=== PATIENT | female | born 1990 | race Caucasian/White ===

== ENCOUNTER 2022-07-23 14:30 | Outpatient (RCR) | payer OTHER, MEDICAID, SELFPAY ==
--- NOTE | 2022-01-24 12:00 | PT.OIE ---
Current Diagnoses Cystocele, unspecified (01/24/22) Encounter for routine follow-up (01/24/22) Visit Care Team Role Provider Type Marti Martel MD Primary Care Provider Non-Staff Specialty: RETORT FIRER Address: [facility] RETORT FIRER, [address], [facility] [address], [place], [address] Email: Ruth Garza DO Family Provider Non-Staff Specialty: RETORT FIRER Address: [facility] [employer]ORT [employer]ER, [address], [address], [place], [address] Email: Attending Provider Referring Provider Specialty: Address: Phone: Fax: Email: Physical Therapy Initial Evaluation PT-OP-A Visit Information Start: 01/16/22 12:31 Freq: Status: Active Protocol: Document 01/24/22 11:11 AMB (Rec: 01/24/22 12:59 AMB [id number]) Out-Patient Physical Therapy Visit Information Visit Information Visit Type Initial Evaluation Visit Start Time 11:10 Visit Stop Time 12:00 Total Visit Minutes 50 Visit Number 1 PT-OP-B Current Condition Start: 01/16/22 12:31 Freq: Status: Active Protocol: Document 01/24/22 11:11 AMB (Rec: 01/24/22 12:59 AMB [id number]) Current Condition History of Current Condition Onset Date 10/10 Current Complaints Pelvic heaviness History of Current Condition Sex was painful for a couple weeks after marriage, had to use a dilator. But was able have intercourse, but since the of her daughter she feels pelvic heaviness. Has been checked by 3 different doctors all of whom have said she does not have prolapse. She feels heaviness constantly , but worst with activity and at the end of the day. Also urinary urgency, feels like she needs to use the bathroom after an hour, but then voids only a small volume. Denies fecal incontinence/ constipation. GrII tear with , per pt report short period of time with pushing. Menstruation has returned and she did feel that a tampon was mildly helpful. Treatment Goals Patient/Caregiver Goals Be able to walk around without pelvic heaviness Prior Functional Status Baseline Function- ADL's Independent Baseline Function- Mobility Independent Current Functional Impairments (Reported) Functional Limitations- ADL's [place], lifting her child , standing at the end of the day without pain Personal Factors Other Personal Factors That May Effect Anxiety Therapy/Recovery PT-OP-C Subjective Start: 01/16/22 12:31 Freq: Status: Active Protocol: Document 01/24/22 11:15 AMB (Rec: 01/28/22 11:23 AMB [id number]) Patient Questionnaires Pelvic Pain and Urgency/Frequency Patient Symptom Scale Pelvic Pain Score 12 PT-OP-I Pelvic Floor Start: 01/16/22 12:31 Freq: Status: Active Protocol: Document 01/24/22 11:11 AMB (Rec: 01/24/22 12:59 AMB [id number]) Pelvic Floor Assessment Urine Pelvic Floor Surgery No Leakage Cause Cough,Sneeze Nocturia 1 Bowel [place] Stool Chart Comments 3-4 bristol stool scale Pelvic Clock Pelvic Clock Other Tenderness at R levator ani, none on left. Burning pain with palpation at scar at 6 oclock. Prolapse Prolapse Comments Could not visualize prolapse in hooklying with valsalva or in standing Perineal Descent Resting Absent Bearing Present Contraction Ability Manual Muscle Testing Left 2 Manual Muscle Testing Right 2 Manual Muscle Testing Anterior 2 Manual Muscle Testing Posterior 3 Muscle Endurance (Seconds) 4 Number of Quick Contractions In 10 4 Seconds PT-OP-T Assessment and Plan Start: 01/16/22 12:31 Freq: Status: Active Protocol: Document 01/24/22 11:15 AMB (Rec: 01/28/22 11:37 AMB [id number]) Physical Therapy Assessment Rehab Potential Rehabilitation Potential Good Evaluation Complexity Number of Personal Factors/Comorbidities 1-2 Number of Body Systems Impaired 3 Clinical Presentation at Evaluation Stable Impairments Impairments Activity Tolerance,Pain, Strength Goals Two Impairment Pelvic floor weakness Short Term Goal (STG) Shilpi will contract her pelvic floor muscles for 10 seconds in standing without compensation. STG Duration 4 weeks One Impairment Pelvic pain Short Term Goal (STG) Shilpi will engage in the sexual intercourse of her choice without pelvic pain. STG Duration 4 weeks Care Home Goal (LTG) Shilpi will lift her daughter from the floor without pelvic heaviness. LTG Duration 8 weeks Assessment Summary Assessment Shilpi attends physical therapy with pelvic pain worst at the end of her day and with activity after the of her daughter 4 months ago. She presented with a history of painful intercourse and did have burning pain over her scar and along the right side of her levator ani. While she was able to contract her pelvic floor for a maximum of 4 seconds, she would absolutely benefit from pelvic floor strengthening, but with respect to her pelvic pain history. No organ prolapse was visible in either hooklying with valsalva or in standing, but did discuss her reduced pelvic floor strength and pain history and how this is likely causing her pain. Physical Therapy Plan Frequency and Duration Frequency of Treatment 1x/Week Duration of Treatment 8 weeks Plan of Care Start Date 01/24/22 Plan of Care End Date 03/21/22 Therapeutic Interventions Therapeutic Interventions Home Exercise Program,Manual Therapy,Neuromuscular Re- education,Self-Care/Home Management,Therapeutic Activities,Therapeutic Exercises Modalities Biofeedback,Cold Pack/Ice Massage,Electric Stimulation Next Visit Focus/Plan Next Note Type Treatment Note Next Visit Plan Recheck quick flicks, long holds, instruct in scar massage
--- NOTE | 2022-01-24 12:00 | PT.OPPOC ---
Physical, Occupational & Speech Therapy At [facility] Current Diagnoses Cystocele, unspecified (01/24/22) Encounter for routine follow-up (01/24/22) Visit Care Team Role Provider Type Marti Martel MD Primary Care Provider Non-Staff Specialty: MOP WORKER Address: [facility] MOP WORKER, [address] [place] [address], [id number] Email: Ruth Garza DO Family Provider Non-Staff Specialty: MOP WORKER Address: [facility] MOP WORKER, [address] [place] [address], [id number] Email: Attending Provider Referring Provider Specialty: Address: Phone: Fax: Email: Plan Of Care PT-OP-T Assessment and Plan Start: 01/16/22 12:31 Freq: Status: Active Protocol: Document 01/24/22 11:15 AMB (Rec: 01/28/22 11:37 [facility] [id number]) Physical Therapy Assessment Rehab Potential Rehabilitation Potential Good Evaluation Complexity Number of Personal Factors/Comorbidities 1-2 Number of Body Systems Impaired 3 Clinical Presentation at Evaluation Stable Impairments Impairments Activity Tolerance,Pain, Strength Goals Two Impairment Pelvic floor weakness Short Term Goal (STG) Shilpi will contract her pelvic floor muscles for 10 seconds in standing without compensation. STG Duration 4 weeks One Impairment Pelvic pain Short Term Goal (STG) Shilpi will engage in the sexual intercourse of her choice without pelvic pain. STG Duration 4 weeks Prison Goal (LTG) Shilpi will lift her daughter from the floor without pelvic heaviness. LTG Duration 8 weeks Assessment Summary Assessment Shilpi attends physical therapy with pelvic pain worst at the end of her day and with activity after the of her daughter 4 months ago. She presented with a history of painful intercourse and did have burning pain over her scar and along the right side of her levator ani. While she was able to contract her pelvic floor for a maximum of 4 seconds, she would absolutely benefit from pelvic floor strengthening, but with respect to her pelvic pain history. No organ prolapse was visible in either hooklying with valsalva or in standing, but did discuss her reduced pelvic floor strength and pain history and how this is likely causing her pain. Physical Therapy Plan Frequency and Duration Frequency of Treatment 1x/Week Duration of Treatment 8 weeks Plan of Care Start Date 01/24/22 Plan of Care End Date 03/21/22 Therapeutic Interventions Therapeutic Interventions Home Exercise Program,Manual Therapy,Neuromuscular Re- education,Self-Care/Home Management,Therapeutic Activities,Therapeutic Exercises Modalities Biofeedback,Cold Pack/Ice Massage,Electric Stimulation Next Visit Focus/Plan Next Note Type Treatment Note Next Visit Plan Recheck quick flicks, long holds, instruct in scar massage Plan of Care Dates Plan of Care Start Date 01/24/22 Plan of Care End Date 03/21/22 Electronically Signed by: Hortensia Jolly, PT 01/28/22 [id number] Please Sign and Return: I have reviewed this Plan of Care and certify that the skilled therapy services above are required to meet the patient?s needs. Physician Signature Date Printed Name and Credentials Clinical Instructor Signature Printed Name and Credentials
--- NOTE | 2022-01-31 16:21 | PT.OTN ---
Current Diagnoses Cystocele, unspecified (01/31/22) Encounter for routine follow-up (01/31/22) Physical Therapy Treatment Note PT-OP-A Visit Information Start: 01/16/22 12:31 Freq: Status: Active Protocol: Document 01/31/22 14:30 AMB (Rec: 01/31/22 15:32 AMB [id number]) Out-Patient Physical Therapy Visit Information Visit Information Visit Type Treatment Note Visit Start Time 14:30 Visit Stop Time 15:15 Total Visit Minutes 45 Visit Number 2 PT-OP-B Current Condition Start: 01/16/22 12:31 Freq: Status: Active Protocol: Document 01/24/22 11:11 AMB (Rec: 01/24/22 12:59 AMB [id number]) Current Condition History of Current Condition Onset Date 10/10 Current Complaints Pelvic heaviness History of Current Condition Sex was painful for a couple weeks after marriage, had to use a dilator. But was able have intercourse, but since the of her daughter she feels pelvic heaviness. Has been checked by 3 different doctors all of whom have said she does not have prolapse. She feels heaviness constantly , but worst with activity and at the end of the day. Also urinary urgency, feels like she needs to use the bathroom after an hour, but then voids only a small volume. Denies fecal incontinence/ constipation. GrII tear with , per pt report short period of time with pushing. Menstruation has returned and she did feel that a tampon was mildly helpful. Treatment Goals Patient/Caregiver Goals Be able to walk around without pelvic heaviness Prior Functional Status Baseline Function- ADL's Independent Baseline Function- Mobility Independent Current Functional Impairments (Reported) Functional Limitations- ADL's [place], lifting her child , standing at the end of the day without pain Personal Factors Other Personal Factors That May Effect Anxiety Therapy/Recovery PT-OP-C Subjective Start: 01/16/22 12:31 Freq: Status: Active Protocol: Document 01/31/22 14:30 AMB (Rec: 01/31/22 15:32 AMB [id number]) OP-PT Subjective Patient Comments Patient Comments Pt thinks she is getting better, just a little. Did go on a walk and shopping and did have increased sx with that. PT-OP-I Pelvic Floor Start: 01/16/22 12:31 Freq: Status: Active Protocol: Document 01/24/22 11:11 AMB (Rec: 01/24/22 12:59 AMB [id number]) Pelvic Floor Assessment Urine Pelvic Floor Surgery No Leakage Cause Cough,Sneeze Nocturia 1 Bowel [place] Stool Chart Comments 3-4 bristol stool scale Pelvic Clock Pelvic Clock Other Tenderness at R levator ani, none on left. Burning pain with palpation at scar at 6 oclock. Prolapse Prolapse Comments Could not visualize prolapse in hooklying with valsalva or in standing Perineal Descent Resting Absent Bearing Present Contraction Ability Manual Muscle Testing Left 2 Manual Muscle Testing Right 2 Manual Muscle Testing Anterior 2 Manual Muscle Testing Posterior 3 Muscle Endurance (Seconds) 4 Number of Quick Contractions In 10 4 Seconds PT-OP-Q Treatments Start: 01/16/22 12:31 Freq: Status: Active Protocol: Document 01/31/22 14:30 AMB (Rec: 01/31/22 16:21 AMB [id number]) Neuro Re-Education Treatment Other Activities sEMG Comments quick flicks, long holds, see assessment section PT-OP-T Assessment and Plan Start: 01/16/22 12:31 Freq: Status: Active Protocol: Document 01/31/22 14:30 AMB (Rec: 01/31/22 15:32 AMB [id number]) Physical Therapy Assessment Goals Two Impairment Pelvic floor weakness Short Term Goal (STG) Shilpi will contract her pelvic floor muscles for 10 seconds in standing without compensation. STG Duration 4 weeks One Impairment Pelvic pain Short Term Goal (STG) Shilpi will engage in the sexual intercourse of her choice without pelvic pain. STG Duration 4 weeks Half-Way Goal (LTG) Shilpi will lift her daughter from the floor without pelvic heaviness. LTG Duration 8 weeks Assessment Summary Assessment Long holds 12, avg 4. quick flicks 12.7. Shilpi continues to have a lot of questions, did discuss activity prescription. Encouraged her that shopping/going for walks is good for her, but if she is symptomatic try to limit to one big activity a day. Would also advise against running/ jumping/lifting heavy at this point. Does fatigue quickly after about 4-5 seconds. Physical Therapy Plan Next Visit Focus/Plan Next Note Type Treatment Note Next Visit Plan Recheck quick flicks, long holds, instruct in scar massage
--- NOTE | 2022-02-07 14:53 | PT.OTN ---
Current Diagnoses Cystocele, unspecified (02/07/22) Encounter for routine follow-up (02/07/22) Physical Therapy Treatment Note PT-OP-A Visit Information Start: 01/16/22 12:31 Freq: Status: Active Protocol: Document 02/07/22 14:34 AMB (Rec: 02/07/22 15:35 AMB [id number]) Out-Patient Physical Therapy Visit Information Visit Information Visit Type Treatment Note Visit Start Time 14:30 Visit Stop Time 15:15 Total Visit Minutes 45 Visit Number 3 PT-OP-B Current Condition Start: 01/16/22 12:31 Freq: Status: Active Protocol: Document 01/24/22 11:11 AMB (Rec: 01/24/22 12:59 AMB [id number]) Current Condition History of Current Condition Onset Date 10/10 Current Complaints Pelvic heaviness History of Current Condition Sex was painful for a couple weeks after marriage, had to use a dilator. But was able have intercourse, but since the of her daughter she feels pelvic heaviness. Has been checked by 3 different doctors all of whom have said she does not have prolapse. She feels heaviness constantly , but worst with activity and at the end of the day. Also urinary urgency, feels like she needs to use the bathroom after an hour, but then voids only a small volume. Denies fecal incontinence/ constipation. GrII tear with , per pt report short period of time with pushing. Menstruation has returned and she did feel that a tampon was mildly helpful. Treatment Goals Patient/Caregiver Goals Be able to walk around without pelvic heaviness Prior Functional Status Baseline Function- ADL's Independent Baseline Function- Mobility Independent Current Functional Impairments (Reported) Functional Limitations- ADL's [place], lifting her child , standing at the end of the day without pain Personal Factors Other Personal Factors That May Effect Anxiety Therapy/Recovery PT-OP-C Subjective Start: 01/16/22 12:31 Freq: Status: Active Protocol: Document 02/07/22 14:30 AMB (Rec: 02/09/22 14:53 AMB [id number]) OP-PT Subjective Patient Comments Patient Comments Pt continues to think there is mild improvement in sx. PT-OP-I Pelvic Floor Start: 01/16/22 12:31 Freq: Status: Active Protocol: Document 01/24/22 11:11 AMB (Rec: 01/24/22 12:59 AMB [id number]) Pelvic Floor Assessment Urine Pelvic Floor Surgery No Leakage Cause Cough,Sneeze Nocturia 1 Bowel [place] Stool Chart Comments 3-4 bristol stool scale Pelvic Clock Pelvic Clock Other Tenderness at R levator ani, none on left. Burning pain with palpation at scar at 6 oclock. Prolapse Prolapse Comments Could not visualize prolapse in hooklying with valsalva or in standing Perineal Descent Resting Absent Bearing Present Contraction Ability Manual Muscle Testing Left 2 Manual Muscle Testing Right 2 Manual Muscle Testing Anterior 2 Manual Muscle Testing Posterior 3 Muscle Endurance (Seconds) 4 Number of Quick Contractions In 10 4 Seconds PT-OP-Q Treatments Start: 01/16/22 12:31 Freq: Status: Active Protocol: Document 02/07/22 14:30 AMB (Rec: 02/09/22 14:53 AMB [id number]) Therapeutic Exercises Supine Exercises PF contract Comments with legs elevated Sitting Exercises PF contract Comments with sit to stand roll out Resistance #2 t band Reps/Minutes 10 roll in Resistance ball Reps/Minutes 2x10 Comments cues to contract first, breathe PT-OP-T Assessment and Plan Start: 01/16/22 12:31 Freq: Status: Active Protocol: Document 02/07/22 14:30 AMB (Rec: 02/09/22 14:53 AMB [id number]) Physical Therapy Assessment Goals Two Impairment Pelvic floor weakness Short Term Goal (STG) Shilpi will contract her pelvic floor muscles for 10 seconds in standing without compensation. STG Duration 4 weeks One Impairment Pelvic pain Short Term Goal (STG) Shilpi will engage in the sexual intercourse of her choice without pelvic pain. STG Duration 4 weeks Joggle Press Operator Goal (LTG) Shilpi will lift her daughter from the floor without pelvic heaviness. LTG Duration 8 weeks Assessment Summary Assessment Shilpi did well with roll outs and roll ins, continued to encourage in pelvic/leg elevation for symptom relief. Physical Therapy Plan Next Visit Focus/Plan Next Note Type Treatment Note Next Visit Plan Recheck quick flicks, long holds, follow up on dilator
--- NOTE | 2022-02-14 15:59 | PT.OTN ---
Current Diagnoses Cystocele, unspecified (02/14/22) Encounter for routine follow-up (02/14/22) Physical Therapy Treatment Note PT-OP-A Visit Information Start: 01/16/22 12:31 Freq: Status: Active Protocol: Document 02/14/22 14:32 AMB (Rec: 02/14/22 15:59 AMB [id number]) Out-Patient Physical Therapy Visit Information Visit Information Visit Type Treatment Note Visit Start Time 14:30 Visit Stop Time 15:15 Total Visit Minutes 45 Visit Number 4 PT-OP-B Current Condition Start: 01/16/22 12:31 Freq: Status: Active Protocol: Document 01/24/22 11:11 AMB (Rec: 01/24/22 12:59 AMB [id number]) Current Condition History of Current Condition Onset Date 10/10 Current Complaints Pelvic heaviness History of Current Condition Sex was painful for a couple weeks after marriage, had to use a dilator. But was able have intercourse, but since the of her daughter she feels pelvic heaviness. Has been checked by 3 different doctors all of whom have said she does not have prolapse. She feels heaviness constantly , but worst with activity and at the end of the day. Also urinary urgency, feels like she needs to use the bathroom after an hour, but then voids only a small volume. Denies fecal incontinence/ constipation. GrII tear with , per pt report short period of time with pushing. Menstruation has returned and she did feel that a tampon was mildly helpful. Treatment Goals Patient/Caregiver Goals Be able to walk around without pelvic heaviness Prior Functional Status Baseline Function- ADL's Independent Baseline Function- Mobility Independent Current Functional Impairments (Reported) Functional Limitations- ADL's [place], lifting her child , standing at the end of the day without pain Personal Factors Other Personal Factors That May Effect Anxiety Therapy/Recovery PT-OP-C Subjective Start: 01/16/22 12:31 Freq: Status: Active Protocol: Document 02/14/22 14:32 AMB (Rec: 02/14/22 15:59 AMB [id number]) OP-PT Subjective Patient Comments Patient Comments Shilpi had a good day on Saturday, and so did more and the next day there was more pressure. 2/10 currently; 6/ 10 at worst on Saturday. PT-OP-I Pelvic Floor Start: 01/16/22 12:31 Freq: Status: Active Protocol: Document 01/24/22 11:11 AMB (Rec: 01/24/22 12:59 AMB [id number]) Pelvic Floor Assessment Urine Pelvic Floor Surgery No Leakage Cause Cough,Sneeze Nocturia 1 Bowel [place] Stool Chart Comments 3-4 bristol stool scale Pelvic Clock Pelvic Clock Other Tenderness at R levator ani, none on left. Burning pain with palpation at scar at 6 oclock. Prolapse Prolapse Comments Could not visualize prolapse in hooklying with valsalva or in standing Perineal Descent Resting Absent Bearing Present Contraction Ability Manual Muscle Testing Left 2 Manual Muscle Testing Right 2 Manual Muscle Testing Anterior 2 Manual Muscle Testing Posterior 3 Muscle Endurance (Seconds) 4 Number of Quick Contractions In 10 4 Seconds PT-OP-Q Treatments Start: 01/16/22 12:31 Freq: Status: Active Protocol: Document 02/14/22 14:32 AMB (Rec: 02/14/22 15:59 AMB [id number]) Therapeutic Exercises Supine Exercises pelvic tilts Comments wiht pelvic floor, breath double knee to chest Reps/Minutes 10x5 pelvic tilts, pelvic circles Reps/Minutes 10 december Supine Exercise Name on therapy ball, with pf contract Reps/Minutes 10 Comments cued breath Sitting Exercises roll out Resistance #2 t band Reps/Minutes 10 roll in Resistance ball Reps/Minutes 2x10 Comments cues to contract first, breathe Other Exercises 1 Other Exercise Name quadruped LE extension with long hold Reps/Minutes x10 cristin pose Reps/Minutes 30x4 PT-OP-T Assessment and Plan Start: 01/16/22 12:31 Freq: Status: Active Protocol: Document 02/14/22 14:32 AMB (Rec: 02/14/22 15:59 AMB [id number]) Physical Therapy Assessment Goals Two Impairment Pelvic floor weakness Short Term Goal (STG) Shilpi will contract her pelvic floor muscles for 10 seconds in standing without compensation. STG Duration 4 weeks One Impairment Pelvic pain Short Term Goal (STG) Shilpi will engage in the sexual intercourse of her choice without pelvic pain. STG Duration 4 weeks Assisted Goal (LTG) Shilpi will lift her daughter from the floor without pelvic heaviness. LTG Duration 8 weeks Assessment Summary Assessment Shilpi continues to have questions, but was able to tolerate all exercises without pressure. Encouraged in keeping activity levels similar throughout the week to avoid increased pressure, but also slowly increase activity , consider aquatics. Physical Therapy Plan Next Visit Focus/Plan Next Note Type Treatment Note Next Visit Plan Recheck quick flicks, long holds, follow up on dilator
--- NOTE | 2022-02-21 16:00 | PT.OTN ---
Current Diagnoses Cystocele, unspecified (02/21/22) Encounter for routine follow-up (02/21/22) Physical Therapy Treatment Note PT-OP-A Visit Information Start: 01/16/22 12:31 Freq: Status: Active Protocol: Document 02/21/22 14:30 AMB (Rec: 02/21/22 15:55 AMB [id number]) Out-Patient Physical Therapy Visit Information Visit Information Visit Type Treatment Note Visit Start Time 14:30 Visit Stop Time 15:15 Total Visit Minutes 45 Visit Number 5 PT-OP-B Current Condition Start: 01/16/22 12:31 Freq: Status: Active Protocol: Document 01/24/22 11:11 AMB (Rec: 01/24/22 12:59 AMB [id number]) Current Condition History of Current Condition Onset Date 10/10 Current Complaints Pelvic heaviness History of Current Condition Sex was painful for a couple weeks after marriage, had to use a dilator. But was able have intercourse, but since the of her daughter she feels pelvic heaviness. Has been checked by 3 different doctors all of whom have said she does not have prolapse. She feels heaviness constantly , but worst with activity and at the end of the day. Also urinary urgency, feels like she needs to use the bathroom after an hour, but then voids only a small volume. Denies fecal incontinence/ constipation. GrII tear with , per pt report short period of time with pushing. Menstruation has returned and she did feel that a tampon was mildly helpful. Treatment Goals Patient/Caregiver Goals Be able to walk around without pelvic heaviness Prior Functional Status Baseline Function- ADL's Independent Baseline Function- Mobility Independent Current Functional Impairments (Reported) Functional Limitations- ADL's [place], lifting her child , standing at the end of the day without pain Personal Factors Other Personal Factors That May Effect Anxiety Therapy/Recovery PT-OP-C Subjective Start: 01/16/22 12:31 Freq: Status: Active Protocol: Document 02/21/22 14:30 AMB (Rec: 02/21/22 15:55 AMB [id number]) OP-PT Subjective Patient Comments Patient Comments Shilpi van thinks sx are slowly getting better, but she continues to be constantly aware of the symptoms PT-OP-I Pelvic Floor Start: 01/16/22 12:31 Freq: Status: Active Protocol: Document 01/24/22 11:11 AMB (Rec: 01/24/22 12:59 AMB [id number]) Pelvic Floor Assessment Urine Pelvic Floor Surgery No Leakage Cause Cough,Sneeze Nocturia 1 Bowel [place] Stool Chart Comments 3-4 bristol stool scale Pelvic Clock Pelvic Clock Other Tenderness at R levator ani, none on left. Burning pain with palpation at scar at 6 oclock. Prolapse Prolapse Comments Could not visualize prolapse in hooklying with valsalva or in standing Perineal Descent Resting Absent Bearing Present Contraction Ability Manual Muscle Testing Left 2 Manual Muscle Testing Right 2 Manual Muscle Testing Anterior 2 Manual Muscle Testing Posterior 3 Muscle Endurance (Seconds) 4 Number of Quick Contractions In 10 4 Seconds PT-OP-Q Treatments Start: 01/16/22 12:31 Freq: Status: Active Protocol: Document 02/21/22 14:30 AMB (Rec: 02/21/22 15:55 AMB [id number]) Neuro Re-Education Treatment Other Activities sEMG Comments quick flicks, long holds, see assessment section PT-OP-T Assessment and Plan Start: 01/16/22 12:31 Freq: Status: Active Protocol: Document 02/21/22 14:41 AMB (Rec: 02/21/22 15:29 AMB [id number]) Physical Therapy Assessment Goals Two Impairment Pelvic floor weakness Short Term Goal (STG) Shilpi will contract her pelvic floor muscles for 10 seconds in standing without compensation. STG Duration 4 weeks One Impairment Pelvic pain Short Term Goal (STG) Shilpi will engage in the sexual intercourse of her choice without pelvic pain. STG Duration 4 weeks Retirement Goal (LTG) Shilpi will lift her daughter from the floor without pelvic heaviness. LTG Duration 8 weeks Assessment Summary Assessment Long holds 17, avg 6. quick flicks 17. Education provided that numbers are improving, which given 3 weeks since last checked is very reassuring. Encouraged pt that since she is still only 4 months post some feeling of heaviness and pressure would be very common (but not normal ), and that if she is continuing to feel sx in another 5 months, would recommend return to [place], but given improvement so far not thinking that will be needed. Physical Therapy Plan Next Visit Focus/Plan Next Note Type Treatment Note Next Visit Plan Recheck quick flicks, long holds, follow up on dilator
--- NOTE | 2022-02-28 16:00 | PT.OTN ---
Current Diagnoses Cystocele, unspecified (02/28/22) Encounter for routine follow-up (02/28/22) Physical Therapy Treatment Note PT-OP-A Visit Information Start: 01/16/22 12:31 Freq: Status: Active Protocol: Document 02/28/22 14:33 AMB (Rec: 02/28/22 15:33 AMB [id number]) Out-Patient Physical Therapy Visit Information Visit Information Visit Type Treatment Note Visit Start Time 14:30 Visit Stop Time 15:15 Total Visit Minutes 45 Visit Number 6 PT-OP-B Current Condition Start: 01/16/22 12:31 Freq: Status: Active Protocol: Document 01/24/22 11:11 AMB (Rec: 01/24/22 12:59 AMB [id number]) Current Condition History of Current Condition Onset Date 10/10 Current Complaints Pelvic heaviness History of Current Condition Sex was painful for a couple weeks after marriage, had to use a dilator. But was able have intercourse, but since the of her daughter she feels pelvic heaviness. Has been checked by 3 different doctors all of whom have said she does not have prolapse. She feels heaviness constantly , but worst with activity and at the end of the day. Also urinary urgency, feels like she needs to use the bathroom after an hour, but then voids only a small volume. Denies fecal incontinence/ constipation. GrII tear with , per pt report short period of time with pushing. Menstruation has returned and she did feel that a tampon was mildly helpful. Treatment Goals Patient/Caregiver Goals Be able to walk around without pelvic heaviness Prior Functional Status Baseline Function- ADL's Independent Baseline Function- Mobility Independent Current Functional Impairments (Reported) Functional Limitations- ADL's [place], lifting her child , standing at the end of the day without pain Personal Factors Other Personal Factors That May Effect Anxiety Therapy/Recovery PT-OP-C Subjective Start: 01/16/22 12:31 Freq: Status: Active Protocol: Document 02/28/22 14:33 AMB (Rec: 02/28/22 15:33 AMB [id number]) OP-PT Subjective Patient Comments Patient Comments Shilpi continues to be worried she has prolpase, as she does feel relief when she inserts a finger vaginally and pushes against ant wall of vagina. PT-OP-I Pelvic Floor Start: 01/16/22 12:31 Freq: Status: Active Protocol: Document 01/24/22 11:11 AMB (Rec: 01/24/22 12:59 AMB [id number]) Pelvic Floor Assessment Urine Pelvic Floor Surgery No Leakage Cause Cough,Sneeze Nocturia 1 Bowel [place] Stool Chart Comments 3-4 bristol stool scale Pelvic Clock Pelvic Clock Other Tenderness at R levator ani, none on left. Burning pain with palpation at scar at 6 oclock. Prolapse Prolapse Comments Could not visualize prolapse in hooklying with valsalva or in standing Perineal Descent Resting Absent Bearing Present Contraction Ability Manual Muscle Testing Left 2 Manual Muscle Testing Right 2 Manual Muscle Testing Anterior 2 Manual Muscle Testing Posterior 3 Muscle Endurance (Seconds) 4 Number of Quick Contractions In 10 4 Seconds PT-OP-Q Treatments Start: 01/16/22 12:31 Freq: Status: Active Protocol: Document 02/28/22 14:30 AMB (Rec: 03/04/22 10:21 AMB [id number]) Therapeutic Exercises Supine Exercises pelvic tilts Comments wiht pelvic floor, breath double knee to chest Reps/Minutes 10x5 Sitting Exercises sit to stand Reps/Minutes 2x10 Comments cued PF control, breath PF contract Comments with sit to stand roll out Resistance #2 t band Reps/Minutes 10 PT-OP-T Assessment and Plan Start: 01/16/22 12:31 Freq: Status: Active Protocol: Document 02/28/22 14:33 AMB (Rec: 02/28/22 15:33 AMB [id number]) Physical Therapy Assessment Assessment Summary Assessment Shilpi did well with jojo pelvic floor while moving from sit to stand, but does tend to have more sx the next day after activity, can prescribe more intense strengthening next week if she tolerates sit to stands well. Physical Therapy Plan Next Visit Focus/Plan Next Note Type Treatment Note Next Visit Plan progress into standing
--- NOTE | 2022-03-06 15:45 | PT.OTN ---
Current Diagnoses Cystocele, unspecified (03/06/22) Encounter for routine follow-up (03/06/22) Physical Therapy Treatment Note PT-OP-A Visit Information Start: 01/16/22 12:31 Freq: Status: Active Protocol: Document 03/06/22 14:02 AMB (Rec: 03/06/22 14:33 AMB [id number]) Out-Patient Physical Therapy Visit Information Visit Information Visit Type Treatment Note Visit Start Time 14:00 Visit Stop Time 14:30 Total Visit Minutes 30 Visit Number 7 PT-OP-B Current Condition Start: 01/16/22 12:31 Freq: Status: Active Protocol: Document 01/24/22 11:11 AMB (Rec: 01/24/22 12:59 AMB [id number]) Current Condition History of Current Condition Onset Date 10/10 Current Complaints Pelvic heaviness History of Current Condition Sex was painful for a couple weeks after marriage, had to use a dilator. But was able have intercourse, but since the of her daughter she feels pelvic heaviness. Has been checked by 3 different doctors all of whom have said she does not have prolapse. She feels heaviness constantly , but worst with activity and at the end of the day. Also urinary urgency, feels like she needs to use the bathroom after an hour, but then voids only a small volume. Denies fecal incontinence/ constipation. GrII tear with , per pt report short period of time with pushing. Menstruation has returned and she did feel that a tampon was mildly helpful. Treatment Goals Patient/Caregiver Goals Be able to walk around without pelvic heaviness Prior Functional Status Baseline Function- ADL's Independent Baseline Function- Mobility Independent Current Functional Impairments (Reported) Functional Limitations- ADL's [place], lifting her child , standing at the end of the day without pain Personal Factors Other Personal Factors That May Effect Anxiety Therapy/Recovery PT-OP-C Subjective Start: 01/16/22 12:31 Freq: Status: Active Protocol: Document 03/06/22 14:02 AMB (Rec: 03/06/22 14:33 AMB [id number]) OP-PT Subjective Patient Comments Patient Comments Shilpi felt better, was able to enjoy a friend's wedding. Was able to dance a little without pelvic pain, does continue to have awareness of sx at vall times PT-OP-I Pelvic Floor Start: 01/16/22 12:31 Freq: Status: Active Protocol: Document 01/24/22 11:11 AMB (Rec: 01/24/22 12:59 AMB [id number]) Pelvic Floor Assessment Urine Pelvic Floor Surgery No Leakage Cause Cough,Sneeze Nocturia 1 Bowel [place] Stool Chart Comments 3-4 bristol stool scale Pelvic Clock Pelvic Clock Other Tenderness at R levator ani, none on left. Burning pain with palpation at scar at 6 oclock. Prolapse Prolapse Comments Could not visualize prolapse in hooklying with valsalva or in standing Perineal Descent Resting Absent Bearing Present Contraction Ability Manual Muscle Testing Left 2 Manual Muscle Testing Right 2 Manual Muscle Testing Anterior 2 Manual Muscle Testing Posterior 3 Muscle Endurance (Seconds) 4 Number of Quick Contractions In 10 4 Seconds PT-OP-Q Treatments Start: 01/16/22 12:31 Freq: Status: Active Protocol: Document 03/06/22 13:45 AMB (Rec: 03/06/22 15:44 AMB [id number]) Neuro Re-Education Treatment Other Activities sEMG Reps/Duration 30 min Comments quick flicks, long holds, see assessment section PT-OP-T Assessment and Plan Start: 01/16/22 12:31 Freq: Status: Active Protocol: Document 03/06/22 14:02 AMB (Rec: 03/06/22 14:33 AMB [id number]) Physical Therapy Assessment Goals Two Impairment Pelvic floor weakness Short Term Goal (STG) Shilpi will contract her pelvic floor muscles for 10 seconds in standing without compensation. STG Duration 4 weeks One Impairment Pelvic pain Short Term Goal (STG) Shilpi will engage in the sexual intercourse of her choice without pelvic pain. STG Duration 4 weeks Environmental Law Professor Goal (LTG) Shilpi will lift her daughter from the floor without pelvic heaviness. LTG Duration 8 weeks Assessment Summary Assessment Biofeedback numbers similar to last session, avg 7, max 16. Pt requested biofeedback, as she is feeling better symptomatically. Discussed continued consistency with strengthening, easing back into activity. Physical Therapy Plan Next Visit Focus/Plan Next Note Type Treatment Note Next Visit Plan progress into standing
--- NOTE | 2022-03-21 15:43 | PT.OTN ---
Current Diagnoses Cystocele, unspecified (03/21/22) Encounter for routine follow-up (03/21/22) Physical Therapy Treatment Note PT-OP-A Visit Information Start: 01/16/22 12:31 Freq: Status: Active Protocol: Document 03/21/22 14:33 AMB (Rec: 03/21/22 15:39 AMB [id number]) Out-Patient Physical Therapy Visit Information Visit Information Visit Type Treatment Note Visit Start Time 14:30 Visit Stop Time 15:15 Total Visit Minutes 45 Visit Number 8 PT-OP-B Current Condition Start: 01/16/22 12:31 Freq: Status: Active Protocol: Document 01/24/22 11:11 AMB (Rec: 01/24/22 12:59 AMB [id number]) Current Condition History of Current Condition Onset Date 10/10 Current Complaints Pelvic heaviness History of Current Condition Sex was painful for a couple weeks after marriage, had to use a dilator. But was able have intercourse, but since the of her daughter she feels pelvic heaviness. Has been checked by 3 different doctors all of whom have said she does not have prolapse. She feels heaviness constantly , but worst with activity and at the end of the day. Also urinary urgency, feels like she needs to use the bathroom after an hour, but then voids only a small volume. Denies fecal incontinence/ constipation. GrII tear with , per pt report short period of time with pushing. Menstruation has returned and she did feel that a tampon was mildly helpful. Treatment Goals Patient/Caregiver Goals Be able to walk around without pelvic heaviness Prior Functional Status Baseline Function- ADL's Independent Baseline Function- Mobility Independent Current Functional Impairments (Reported) Functional Limitations- ADL's [place], lifting her child , standing at the end of the day without pain Personal Factors Other Personal Factors That May Effect Anxiety Therapy/Recovery PT-OP-C Subjective Start: 01/16/22 12:31 Freq: Status: Active Protocol: Document 03/21/22 14:33 AMB (Rec: 03/21/22 15:39 AMB [id number]) OP-PT Subjective Patient Comments Patient Comments Pt continues to feel like sx are slowly improving. PT-OP-I Pelvic Floor Start: 01/16/22 12:31 Freq: Status: Active Protocol: Document 01/24/22 11:11 AMB (Rec: 01/24/22 12:59 AMB [id number]) Pelvic Floor Assessment Urine Pelvic Floor Surgery No Leakage Cause Cough,Sneeze Nocturia 1 Bowel [place] Stool Chart Comments 3-4 bristol stool scale Pelvic Clock Pelvic Clock Other Tenderness at R levator ani, none on left. Burning pain with palpation at scar at 6 oclock. Prolapse Prolapse Comments Could not visualize prolapse in hooklying with valsalva or in standing Perineal Descent Resting Absent Bearing Present Contraction Ability Manual Muscle Testing Left 2 Manual Muscle Testing Right 2 Manual Muscle Testing Anterior 2 Manual Muscle Testing Posterior 3 Muscle Endurance (Seconds) 4 Number of Quick Contractions In 10 4 Seconds PT-OP-Q Treatments Start: 01/16/22 12:31 Freq: Status: Active Protocol: Document 03/21/22 14:33 AMB (Rec: 03/21/22 15:39 AMB [id number]) Therapeutic Exercises Supine Exercises bridge Reps/Minutes 10 Comments pf contract bent knee fall out Reps/Minutes 10 Comments pf contract SLR Reps/Minutes 10 Comments pf contract pelvic tilts Comments wiht pelvic floor, breath march Supine Exercise Name hooklying Reps/Minutes 10 Comments cued breath PT-OP-T Assessment and Plan Start: 01/16/22 12:31 Freq: Status: Active Protocol: Document 03/21/22 14:33 AMB (Rec: 03/21/22 15:39 AMB [id number]) Physical Therapy Assessment Goals Two Impairment Pelvic floor weakness Short Term Goal (STG) Shilpi will contract her pelvic floor muscles for 10 seconds in standing without compensation. STG Duration MET One Impairment Pelvic pain Short Term Goal (STG) Shilpi will engage in the sexual intercourse of her choice without pelvic pain. STG Duration 4 weeks-painful at scar and just feels tight Speech Therapist Technician Goal (LTG) Shilpi will lift her daughter from the floor without pelvic heaviness. LTG Duration 8 weeks- heaviness throughout day, worse in the evening Assessment Summary Assessment Tolerated execises well. Continues to feel like symptoms are slowly improving. Has been more active around the house. Still feeling heaviness but not as bad. Shilpi has had a difficult time finding time to do her exercises,but is very consitent with kegels with legs up on wall. Physical Therapy Plan Frequency and Duration Frequency of Treatment 1x/Week Duration of Treatment 8 weeks Plan of Care Start Date 03/21/22 Plan of Care End Date 05/16/22 Therapeutic Interventions Therapeutic Interventions Home Exercise Program,Manual Therapy,Neuromuscular Re- education,Self-Care/Home Management,Therapeutic Activities,Therapeutic Exercises Modalities Biofeedback,Cold Pack/Ice Massage,Electric Stimulation Next Visit Focus/Plan Next Note Type Treatment Note Next Visit Plan progress into standing
--- NOTE | 2022-03-21 15:44 | PT.OPPOC ---
Physical, Occupational & Speech Therapy At [facility] Current Diagnoses Cystocele, unspecified (03/21/22) Encounter for routine follow-up (03/21/22) Visit Care Team Role Provider Type Marti Martel MD Primary Care Provider Non-Staff Specialty: WINDOWS APPLICATION PACKAGER Address: [facility] [employer], [address] [place] [address], Eduardo. [facility], [place], [address] Email: Ruth Garza DO Attending Provider Non-Staff Family Provider Referring Provider Specialty: WINDOWS APPLICATION PACKAGER Address: [facility] [employer]PLICATION [employer]ER, [address] [place] [address], Edu[place]. [facility], [place], [address] Email: Plan Of Care PT-OP-T Assessment and Plan Start: 01/16/22 12:31 Freq: Status: Active Protocol: Document 03/21/22 14:33 AMB (Rec: 03/21/22 15:39 AMB [id number]) Physical Therapy Assessment Goals Two Impairment Pelvic floor weakness Short Term Goal (STG) Shilpi will contract her pelvic floor muscles for 10 seconds in standing without compensation. STG Duration MET One Impairment Pelvic pain Short Term Goal (STG) Shilpi will engage in the sexual intercourse of her choice without pelvic pain. STG Duration 4 weeks-painful at scar and just feels tight Wafer Fabrication Operator Goal (LTG) Shilpi will lift her daughter from the floor without pelvic heaviness. LTG Duration 8 weeks- heaviness throughout day, worse in the evening Assessment Summary Assessment Tolerated execises well. Continues to feel like symptoms are slowly improving. Has been more active around the house. Still feeling heaviness but not as bad. Shilpi has had a difficult time finding time to do her exercises,but is very consitent with kegels with legs up on wall. Physical Therapy Plan Frequency and Duration Frequency of Treatment 1x/Week Duration of Treatment 8 weeks Plan of Care Start Date 03/21/22 Plan of Care End Date 05/16/22 Therapeutic Interventions Therapeutic Interventions Home Exercise Program,Manual Therapy,Neuromuscular Re- education,Self-Care/Home Management,Therapeutic Activities,Therapeutic Exercises Modalities Biofeedback,Cold Pack/Ice Massage,Electric Stimulation Next Visit Focus/Plan Next Note Type Treatment Note Next Visit Plan progress into standing Plan of Care Dates Plan of Care Start Date 03/21/22 Plan of Care End Date 05/16/22 Electronically Signed by: Hortensia Jolly, PT 03/21/22 [id number] If you are in agreement with this Plan of Care, please return a signed and dated copy. I have reviewed this Plan of Care and certify that the skilled therapy services above are required to meet the patient?s needs. Physician Signature Date Printed Name and Credentials Clinical Instructor Signature Printed Name and Credentials
--- NOTE | 2022-04-24 15:41 | PT.OTN ---
Current Diagnoses Cystocele, unspecified (04/24/22) Encounter for routine follow-up (04/24/22) Physical Therapy Treatment Note PT-OP-A Visit Information Start: 01/16/22 12:31 Freq: Status: Active Protocol: Document 04/24/22 14:35 AMB (Rec: 04/24/22 15:40 AMB [id number]) Out-Patient Physical Therapy Visit Information Visit Information Visit Type Treatment Note Visit Start Time 14:30 Visit Stop Time 15:15 Total Visit Minutes 45 Visit Number 9 PT-OP-B Current Condition Start: 01/16/22 12:31 Freq: Status: Active Protocol: Document 01/24/22 11:11 AMB (Rec: 01/24/22 12:59 AMB [id number]) Current Condition History of Current Condition Onset Date 10/10 Current Complaints Pelvic heaviness History of Current Condition Sex was painful for a couple weeks after marriage, had to use a dilator. But was able have intercourse, but since the of her daughter she feels pelvic heaviness. Has been checked by 3 different doctors all of whom have said she does not have prolapse. She feels heaviness constantly , but worst with activity and at the end of the day. Also urinary urgency, feels like she needs to use the bathroom after an hour, but then voids only a small volume. Denies fecal incontinence/ constipation. GrII tear with , per pt report short period of time with pushing. Menstruation has returned and she did feel that a tampon was mildly helpful. Treatment Goals Patient/Caregiver Goals Be able to walk around without pelvic heaviness Prior Functional Status Baseline Function- ADL's Independent Baseline Function- Mobility Independent Current Functional Impairments (Reported) Functional Limitations- ADL's [place], lifting her child , standing at the end of the day without pain Personal Factors Other Personal Factors That May Effect Anxiety Therapy/Recovery PT-OP-C Subjective Start: 01/16/22 12:31 Freq: Status: Active Protocol: Document 04/24/22 14:35 AMB (Rec: 04/24/22 15:40 AMB [id number]) OP-PT Subjective Patient Comments Patient Comments Still feeling pressure, but not as severe, walks about 2 blocks without feeling pressure, but then does want to sit down. PT-OP-I Pelvic Floor Start: 01/16/22 12:31 Freq: Status: Active Protocol: Document 01/24/22 11:11 AMB (Rec: 01/24/22 12:59 AMB [id number]) Pelvic Floor Assessment Urine Pelvic Floor Surgery No Leakage Cause Cough,Sneeze Nocturia 1 Bowel [place] Stool Chart Comments 3-4 bristol stool scale Pelvic Clock Pelvic Clock Other Tenderness at R levator ani, none on left. Burning pain with palpation at scar at 6 oclock. Prolapse Prolapse Comments Could not visualize prolapse in hooklying with valsalva or in standing Perineal Descent Resting Absent Bearing Present Contraction Ability Manual Muscle Testing Left 2 Manual Muscle Testing Right 2 Manual Muscle Testing Anterior 2 Manual Muscle Testing Posterior 3 Muscle Endurance (Seconds) 4 Number of Quick Contractions In 10 4 Seconds PT-OP-Q Treatments Start: 01/16/22 12:31 Freq: Status: Active Protocol: Document 04/24/22 14:35 AMB (Rec: 04/24/22 15:40 AMB [id number]) Neuro Re-Education Treatment Other Activities sEMG Reps/Duration 45 min Comments quick flicks, long holds, see assessment section PT-OP-T Assessment and Plan Start: 01/16/22 12:31 Freq: Status: Active Protocol: Document 04/24/22 14:35 AMB (Rec: 04/24/22 15:40 AMB [id number]) Physical Therapy Assessment Goals Two Impairment Pelvic floor weakness Short Term Goal (STG) Shilpi will contract her pelvic floor muscles for 10 seconds in standing without compensation. STG Duration MET One Impairment Pelvic pain Short Term Goal (STG) Shilpi will engage in the sexual intercourse of her choice without pelvic pain. STG Duration 4 weeks-painful at scar and just feels tight Fpc Goal (LTG) Shilpi will lift her daughter from the floor without pelvic heaviness. LTG Duration 8 weeks- heaviness throughout day, worse in the evening Assessment Summary Assessment Shilpi continues to have pelvic floor heaviness. She did try to contract her pelvic floor all day because the heaviness feels better, and then at the end of the day she leaked urine, so she has been just doing the inversions and jojo while moving from sit to stand. She does feel better overall, but continues to have symptoms at the end of the day. She was relieved to know that her biofeedback numbers have doubled since she was seen at [facility]. Physical Therapy Plan Next Visit Focus/Plan Next Note Type Treatment Note Next Visit Plan progress into standing
--- NOTE | 2022-07-23 16:00 | PT.OTN ---
Current Diagnoses Cystocele, unspecified (07/23/22) Encounter for routine follow-up (07/23/22) Physical Therapy Treatment Note PT-OP-A Visit Information Start: 01/16/22 12:31 Freq: Status: Active Protocol: Document 07/23/22 14:30 AMB (Rec: 07/26/22 13:49 AMB [id number]) Out-Patient Physical Therapy Visit Information Visit Information Visit Type Progress Note Visit Start Time 14:30 Visit Stop Time 15:15 Total Visit Minutes 45 Visit Number 10 PT-OP-B Current Condition Start: 01/16/22 12:31 Freq: Status: Active Protocol: Document 01/24/22 11:11 AMB (Rec: 01/24/22 12:59 AMB [id number]) Current Condition History of Current Condition Onset Date 10/10 Current Complaints Pelvic heaviness History of Current Condition Sex was painful for a couple weeks after marriage, had to use a dilator. But was able have intercourse, but since the of her daughter she feels pelvic heaviness. Has been checked by 3 different doctors all of whom have said she does not have prolapse. She feels heaviness constantly , but worst with activity and at the end of the day. Also urinary urgency, feels like she needs to use the bathroom after an hour, but then voids only a small volume. Denies fecal incontinence/ constipation. GrII tear with , per pt report short period of time with pushing. Menstruation has returned and she did feel that a tampon was mildly helpful. Treatment Goals Patient/Caregiver Goals Be able to walk around without pelvic heaviness Prior Functional Status Baseline Function- ADL's Independent Baseline Function- Mobility Independent Current Functional Impairments (Reported) Functional Limitations- ADL's [place], lifting her child , standing at the end of the day without pain Personal Factors Other Personal Factors That May Effect Anxiety Therapy/Recovery PT-OP-C Subjective Start: 01/16/22 12:31 Freq: Status: Active Protocol: Document 07/23/22 14:30 AMB (Rec: 07/26/22 13:49 AMB [id number]) OP-PT Subjective Patient Comments Patient Comments Overall feeling better, not normal, but can enjoy daughter now and really just feels pressure in the evenings. PT-OP-I Pelvic Floor Start: 01/16/22 12:31 Freq: Status: Active Protocol: Document 01/24/22 11:11 AMB (Rec: 01/24/22 12:59 AMB [id number]) Pelvic Floor Assessment Urine Pelvic Floor Surgery No Leakage Cause Cough,Sneeze Nocturia 1 Bowel [place] Stool Chart Comments 3-4 bristol stool scale Pelvic Clock Pelvic Clock Other Tenderness at R levator ani, none on left. Burning pain with palpation at scar at 6 oclock. Prolapse Prolapse Comments Could not visualize prolapse in hooklying with valsalva or in standing Perineal Descent Resting Absent Bearing Present Contraction Ability Manual Muscle Testing Left 2 Manual Muscle Testing Right 2 Manual Muscle Testing Anterior 2 Manual Muscle Testing Posterior 3 Muscle Endurance (Seconds) 4 Number of Quick Contractions In 10 4 Seconds PT-OP-Q Treatments Start: 01/16/22 12:31 Freq: Status: Active Protocol: Document 07/23/22 14:30 AMB (Rec: 07/26/22 13:49 AMB [id number]) Neuro Re-Education Treatment Other Activities sEMG Reps/Duration 45 min Comments quick flicks, long holds, see assessment section PT-OP-T Assessment and Plan Start: 01/16/22 12:31 Freq: Status: Active Protocol: Document 07/23/22 14:32 AMB (Rec: 07/23/22 15:41 AMB [id number]) Physical Therapy Assessment Goals Two Impairment Pelvic floor weakness Short Term Goal (STG) Shilpi will contract her pelvic floor muscles for 10 seconds in standing without compensation. STG Duration MET One Impairment Pelvic pain Short Term Goal (STG) Shilpi will engage in the sexual intercourse of her choice without pelvic pain. STG Duration 4 weeks-painful at scar and just feels tight [facility] Goal (LTG) Shilpi will lift her daughter from the floor without pelvic heaviness. LTG Duration 8 weeks- able to in the morning, by evening still heavy Assessment Summary Assessment Shilpi has attended 10 visits of physical therapy. Notices increased pressure at the end of the day and if daughter wakes up multiple times per night that is challenging. There are moments when the pressure isn't there. Doing short kegels at home. Max 12, avg 6 for quick flicks and long holds. Isn't really doing longer contractions or standing exercises due to fatigue. Is looking into nutrition options. Overall feeling significantly better than eval but still only about 50% of pre baby function. Will benefit from continued instruction in progressive strengthening. Physical Therapy Plan Frequency and Duration Frequency of Treatment Every Other Week Duration of treatment (weeks) 10 Plan of Care Start Date 07/23/22 Plan of Care End Date 10/01/22 Therapeutic Interventions Therapeutic Interventions Home Exercise Program,Manual Therapy,Neuromuscular Re- education,Self-Care/Home Management,Therapeutic Activities,Therapeutic Exercises Modalities Biofeedback,Cold Pack/Ice Massage,Electric Stimulation Next Visit Focus/Plan Next Note Type Treatment Note Next Visit Plan progress strengthening into standing as tolerated
--- NOTE | 2022-07-23 16:00 | PT.OPPOC ---
Physical, Occupational & Speech Therapy At [facility] Current Diagnoses Cystocele, unspecified (07/23/22) Encounter for routine follow-up (07/23/22) Visit Care Team Role Provider Type Marti Martel MD Primary Care Provider Non-Staff Specialty: RN TRIAGE Address: [facility] RN TRIAGE, [address] [place] [address], [place]. [facility], [place], [address] Email: Ruth Garza DO Attending Provider Non-Staff Family Provider Referring Provider Specialty: RN TRIAGE Address: [facility] RN TRIAGE, [address] [place] [address], [place]. [facility], [place], [address] Email: Plan Of Care PT-OP-T Assessment and Plan Start: 01/16/22 12:31 Freq: Status: Active Protocol: Document 07/23/22 14:32 AMB (Rec: 07/23/22 15:41 AMB [id number]) Physical Therapy Assessment Goals Two Impairment Pelvic floor weakness Short Term Goal (STG) Shilpi will contract her pelvic floor muscles for 10 seconds in standing without compensation. STG Duration MET One Impairment Pelvic pain Short Term Goal (STG) Shilpi will engage in the sexual intercourse of her choice without pelvic pain. STG Duration 4 weeks-painful at scar and just feels tight Water Tester Goal (LTG) Shilpi will lift her daughter from the floor without pelvic heaviness. LTG Duration 8 weeks- able to in the morning, by evening still heavy Assessment Summary Assessment Shilpi has attended 10 visits of physical therapy. Notices increased pressure at the end of the day and if daughter wakes up multiple times per night that is challenging. There are moments when the pressure isn't there. Doing short kegels at home. Max 12, avg 6 for quick flicks and long holds. Isn't really doing longer contractions or standing exercises due to fatigue. Is looking into nutrition options. Overall feeling significantly better than eval but still only about 50% of pre baby function. Will benefit from continued instruction in progressive strengthening. Physical Therapy Plan Frequency and Duration Frequency of Treatment Every Other Week Duration of treatment (weeks) 10 Plan of Care Start Date 07/23/22 Plan of Care End Date 10/01/22 Therapeutic Interventions Therapeutic Interventions Home Exercise Program,Manual Therapy,Neuromuscular Re- education,Self-Care/Home Management,Therapeutic Activities,Therapeutic Exercises Modalities Biofeedback,Cold Pack/Ice Massage,Electric Stimulation Next Visit Focus/Plan Next Note Type Treatment Note Next Visit Plan progress strengthening into standing as tolerated Plan of Care Dates Plan of Care Start Date 07/23/22 Plan of Care End Date 10/01/22 Electronically Signed by: Hortensia Jolly, PT 07/26/22 [id number] If you are in agreement with this Plan of Care, please return a signed and dated copy. I have reviewed this Plan of Care and certify that the skilled therapy services above are required to meet the patient?s needs. Physician Signature Date Printed Name and Credentials Clinical Instructor Signature Printed Name and Credentials
--- NOTE | 2022-09-10 11:03 | PT.OPDS ---
Current Diagnoses Cystocele, unspecified (07/23/22) Encounter for routine follow-up (07/23/22) Visit Care Team Role Provider Type Marti Martel MD Primary Care Provider Non-Staff Specialty: PHYSICAL TESTING SUPERVISOR Address: [facility] PHYSICAL TESTING SUPERVISOR, [address] [place] [address], [id number] Email: Ruth Garza DO Attending Provider Non-Staff Family Provider Referring Provider Specialty: PHYSICAL TESTING SUPERVISOR Address: [facility] PHYSICAL TESTING SUPERVISOR, [address] [place] [address], [place] [address], [place], [address] Email: Visit Number Visit Number 10 Discharge Summary PT-OP-B Current Condition Start: 01/16/22 12:31 Freq: Status: Active Protocol: Document 01/24/22 11:11 AMB (Rec: 01/24/22 12:59 AMB [id number]) Current Condition History of Current Condition Onset Date 10/10 Current Complaints Pelvic heaviness History of Current Condition Sex was painful for a couple weeks after marriage, had to use a dilator. But was able have intercourse, but since the of her daughter she feels pelvic heaviness. Has been checked by 3 different doctors all of whom have said she does not have prolapse. She feels heaviness constantly , but worst with activity and at the end of the day. Also urinary urgency, feels like she needs to use the bathroom after an hour, but then voids only a small volume. Denies fecal incontinence/ constipation. GrII tear with , per pt report short period of time with pushing. Menstruation has returned and she did feel that a tampon was mildly helpful. Treatment Goals Patient/Caregiver Goals Be able to walk around without pelvic heaviness Prior Functional Status Baseline Function- ADL's Independent Baseline Function- Mobility Independent Current Functional Impairments (Reported) Functional Limitations- ADL's [place], lifting her child , standing at the end of the day without pain Personal Factors Other Personal Factors That May Effect Anxiety Therapy/Recovery PT-OP-C Subjective Start: 01/16/22 12:31 Freq: Status: Active Protocol: Document 07/23/22 14:30 AMB (Rec: 07/26/22 13:49 AMB [id number]) OP-PT Subjective Patient Comments Patient Comments Overall feeling better, not normal, but can enjoy daughter now and really just feels pressure in the evenings. PT-OP-I Pelvic Floor Start: 01/16/22 12:31 Freq: Status: Active Protocol: Document 01/24/22 11:11 AMB (Rec: 01/24/22 12:59 AMB [id number]) Pelvic Floor Assessment Urine Pelvic Floor Surgery No Leakage Cause Cough,Sneeze Nocturia 1 Bowel [place] Stool Chart Comments 3-4 bristol stool scale Pelvic Clock Pelvic Clock Other Tenderness at R levator ani, none on left. Burning pain with palpation at scar at 6 oclock. Prolapse Prolapse Comments Could not visualize prolapse in hooklying with valsalva or in standing Perineal Descent Resting Absent Bearing Present Contraction Ability Manual Muscle Testing Left 2 Manual Muscle Testing Right 2 Manual Muscle Testing Anterior 2 Manual Muscle Testing Posterior 3 Muscle Endurance (Seconds) 4 Number of Quick Contractions In 10 4 Seconds PT-OP-T Assessment and Plan Start: 01/16/22 12:31 Freq: Status: Active Protocol: Document 09/10/22 11:01 AMB (Rec: 09/10/22 11:03 AMB [id number]) Physical Therapy Assessment Goals Two Impairment Pelvic floor weakness Short Term Goal (STG) Shilpi will contract her pelvic floor muscles for 10 seconds in standing without compensation. STG Duration MET One Impairment Pelvic pain Short Term Goal (STG) Shilpi will engage in the sexual intercourse of her choice without pelvic pain. STG Duration 4 weeks-painful at scar and just feels tight [employer] Goal (LTG) Shilpi will lift her daughter from the floor without pelvic heaviness. LTG Duration 8 weeks- able to in the morning, by evening still heavy Assessment Summary Assessment Shilpi canceled her last remaining appointment. She had made good progress in physical therapy, but was still limited by her experience of pain and fatigue especially towards the end of the day.
== END 2022-09-11 12:14 | disposition home or self-care (01) ==
LOC: PHYS 14:30
PROVIDERS: Family Provider Obstetrics & Gynecology; PCP Obstetrics & Gynecology; Referring Provider Obstetrics & Gynecology; Visit Provider Obstetrics & Gynecology
DX: Z39.2 Encounter for routine postpartum follow-up (principal); N81.10 Cystocele, unspecified
CPT/HCPCS: 97110; 97112; 97161